=== PATIENT | female | born 1965 | race Caucasian/White ===

== ENCOUNTER 2016-07-23 12:47 | Emergency (ER) | payer BC ==
[2016-07-23 13:41] VITALS: BP 123/78
--- NOTE | 2016-07-23 14:25 | UC ---
Throat Pain/Nasal Terry HPI - HPI Summary HPI Summary: RIGHT SIDED FACIAL PAIN COUGH, AND NASAL CONGESTION MILD FEVER. - History of Current Complaint Chief Complaint: UCRespiratory Stated Complaint: SINUS/CONGESTION/COUGH Time Seen by Provider: 07/23/16 14:06 Hx Obtained From: Patient Hx Last Menstrual Period: 1999 Onset/Duration: Gradual Onset, Lasting Weeks, Still Present Severity: Moderate Cough: Nonproductive Associated Signs & Symptoms: Positive: Hoarseness, Sinus Discomfort, Nasal Discharge - Epiglottits Risk Factors Epiglottis Risk Factors: Negative - Allergies/Home Medications Allergies/Adverse Reactions: Allergies Allergy/AdvReac Type Severity Reaction Status Date / Time Hydrocodone Allergy Rash Verified 07/23/16 13:41 Home Medications: Home Medications Dextromethorphan-Guaifenesin [Robitussin Cough+Chest Co 10-200 mg] 2 teasp PO Q4HR PRN 07/23/16 [History Confirmed 07/23/16] Diphenhydramine HCl [Benadryl Allergy 25 MG CAP] 25 mg PO Q6HR 07/23/16 [ History Confirmed 07/23/16] Dxtnkeqrpcamz-Sanrikughg-Mipeh [Nyquil Severe Cold/Flu 5-6.25-10-325 mg/15Ml] 1 liq PO QPM PRN 07/23/16 [History Confirmed 07/23/16] SUMAtriptan TAB* [Imitrex TAB*] 25 mg PO SEE INSTRUCTIONS 07/23/16 [History Confirmed 07/23/16] Saline Nasal Rinse 1 dose INH TID 07/23/16 [History Confirmed 07/23/16] PMH/Surg Hx/FS Hx/Imm Hx Previously Healthy: Yes - Surgical History Surgical History: Yes Surgery Procedure, Year, and Place: partial hysterectomy; groin lymph node 2015. cysts on ovary. L ovary removed. Right carpal tunnel; right bunionectomy - Family History Known Family History: Positive: Hypertension - Social History Occupation: Employed Full-time Lives: With Family Alcohol Use: Occasionally Substance Use Type: None Smoking Status (MU): Never Smoked Tobacco - Immunization History Most Recent Tetanus Shot: UNKNOWN Review of Systems Constitutional: Negative Skin: Negative Eyes: Negative ENT: Nasal Discharge Respiratory: Cough Cardiovascular: Negative Gastrointestinal: Negative Genitourinary: Negative Motor: Negative Neurovascular: Negative Musculoskeletal: Negative Neurological: Negative Psychological: Negative All Other Systems Reviewed And Are Negative: Yes Physical Exam Triage Information Reviewed: Yes Appearance: Well-Appearing, No Pain Distress, Well-Nourished Vital Signs: Initial Vital Signs Temp 100.2 F 07/23/16 13:34 Pulse 102 07/23/16 13:34 Resp 20 07/23/16 13:34 BP 123/78 07/23/16 13:34 Pulse Ox 100 07/23/16 13:34 Vital Signs Reviewed: Yes Eye Exam: Normal Eyes: Positive: Conjunctiva Clear ENT: Positive: Hearing grossly normal, Pharynx normal, Nasal congestion, TM bulging, TM dull Dental Exam: Normal Neck exam: Normal Neck: Positive: Supple, Nontender, No Lymphadenopathy Respiratory Exam: Normal Respiratory: Positive: Chest non-tender, Lungs clear, Normal breath sounds, No respiratory distress, No accessory muscle use Cardiovascular Exam: Normal Cardiovascular: Positive: RRR, No Murmur, Pulses Normal Abdominal Exam: Normal Abdomen Description: Positive: Nontender, No Organomegaly Musculoskeletal Exam: Normal Musculoskeletal: Positive: Strength Intact, ROM Intact Neurological Exam: Normal Psychological Exam: Normal Psychological: Positive: Normal Response To Family Skin Exam: Normal Throat Pain/Nasal Course/Dx - Differential Dx/Diagnosis Differential Diagnosis/HQI/PQRI: Otitis Media, Peritonsillar Abscess, Pharyngitis, Sinusitis, Tonsillitis, URI Provider Diagnoses: SINUSITIS Discharge - Discharge Plan Condition: Stable Disposition: HOME Prescriptions: Amoxicillin/Clavulanate TAB* [Augmentin TAB 875*] 875 mg PO BID #20 tab Benzonatate CAP* [Tessalon 100 MG CAP*] 100 mg PO TID PRN #12 cap PRN Reason: Cough Patient Education Materials: Sinusitis (ED) Referrals: Skylar Ozuna [Primary Care Provider] -
== END 2016-07-23 14:36 | disposition home or self-care (01) ==
LOC: UCCORT 12:47
DX: J32.9 Chronic sinusitis, unspecified (principal); Z88.5 Allergy status to narcotic agent
CPT/HCPCS: 99212; G0463